=== PATIENT | female | born 1965 | race Caucasian/White ===

== ENCOUNTER 2021-12-02 04:37 | Emergency (ER) | payer OTHER ==
[~2021-12-02] VITALS: Ht 162.6 cm; Wt 32.0 kg
[2021-12-02 04:44] VITALS: TEMP 97.8
[2021-12-02 05:05] LABS: BASO # 0.1 K/mm3 (0.0-0.2); BASO % 0.7 % (0.0-2.0); EOS # 0.2 K/mm3 (0.0-0.7); EOS % 2.9 % (0.0-4.0); GRAN # 2.7 K/mm3 (1.4-6.5); GRAN % 37.6 % (42.2-75.2); HEMATOCRIT 40.3 % (37.0-47.0); HEMOGLOBIN 13.4 g/dl (12.5-16.0); LYMPH # 3.8 K/mm3 (1.2-3.4); LYMPH % 51.7 % (20.0-51.0); MEAN CELL VOLUME 86 fl (80.0-100.0); MEAN CORPUSCULAR HEMOGLOBIN 29 pg (27-31); MEAN CORPUSCULAR HGB CONC 33 g/dl (33.0-37.0); MEAN PLATELET VOLUME 9.8 fl (7.4-10.4); MONO # 0.5 K/mm3 (0.1-0.6); PLATELET COUNT 334 K/mm3 (130-400); RED BLOOD COUNT 4.71 M/mm3 (4.10-5.30); REDCELL DISTRIBUTION WIDTH-CV 14.8 % (11.5-14.5)
[2021-12-02 05:23] LABS: ALANINE AMINOTRANSFERASE 30 U/L (0-55); ALBUMIN 4.3 gm/dL (3.5-5.0); ALKALINE PHOSPHATASE 85 U/L (40-150); ANION GAP 12 mmol/L (7-16); AST,SGOT 22 U/L (5-34); BILIRUBIN,TOTAL 0.2 mg/dL (0.2-1.2); BLOOD UREA NITROGEN 18 mg/dL (10-20); C-REACTIVE PROTEIN 0.17 mg/dL (0.00-0.50); CARBON DIOXIDE 22 mmol/L (22-29); CHLORIDE 109 mmol/L (98-107); CREATINE KINASE 167 U/L (29-168); GLUCOSE 165 mg/dL (70-99); POTASSIUM 3.2 mmol/L (3.5-4.5); SODIUM 143 mmol/L (136-145); TOTAL PROTEIN 7.1 gm/dL (6.2-8.1)
[2021-12-02 05:43] LABS: THYROID STIMULATING HORMONE 1.897 uIU/mL (0.350-4.940); TROPONIN-I < 0.010 ng/mL (0.00-0.033)
[2021-12-02 07:13] VITALS: BP 126/69; PULSE 96
== END 2021-12-02 07:13 | disposition home or self-care (01) ==
LOC: COL.ER 04:37
PROVIDERS: Emergency Medicine
DX: R00.2 Palpitations (principal); R00.0 Tachycardia, unspecified; E87.6 Hypokalemia; Z28.310 Unvaccinated for COVID-19
CPT/HCPCS: J7030